=== PATIENT | male | born 1995 | race Caucasian/White ===

== ENCOUNTER 2019-06-26 00:59 | Emergency (ER) | payer BC ==
[~2019-06-26] VITALS: Ht 170.2 cm; Wt 128.8 kg
[2019-06-26 01:12] VITALS: Ht 170.2 cm; Wt 128.8 kg
[2019-06-26 03:50] VITALS: BP 137/67
== END 2019-06-26 03:50 | disposition home or self-care (01) ==
LOC: ED 00:59
DX: R19.8 Other specified symptoms and signs involving the digestive system and abdomen (principal); J45.909 Unspecified asthma, uncomplicated